=== PATIENT | male | born 1975 | race American Indian/Alaskan Native ===

== ENCOUNTER 2021-03-10 09:13 | Emergency (ER) | payer SELFPAY ==
[2021-03-10 09:19] VITALS: BP 107/53
[2021-03-10] MEDS ORDERED: CYCLOBENZAPRINE 10 MG TAB PO ONE (10:38)
[2021-03-10] MEDS ORDERED: KETOROLAC 60 MG/2 ML INJ IM ONE (10:38)
[2021-03-10 11:22] LABS: Bilirubin,Urine NEG (Negative); Blood,Urine NEG (Negative); Color,Urine Yellow (Yellow)
--- NOTE | 2021-03-10 12:01 | Emergency Department Report ---
ED Back Pain/Injury HPI - General Chief Complaint: Pain General Stated Complaint: BODY PAINS Time Seen by Provider: 03/10/21 10:31 Source: patient Limitations: No Limitations - History of Present Illness Initial Comments: Patient is a 45-year-old male presents emergency room complaints of right lower back pain that began yesterday. He states yesterday he was moving a heavy old couch. He denies any specific fall or injury. He states he has a history of herniated disc. He states he believes he aggravated his back during moving the furniture yesterday. He denies any fever, nausea, vomiting, diarrhea, urinary symptoms, numbness, weakness, bowel or bladder incontinence, abdominal pain. No other past medical history. No allergies to medications. - Related Data Previous Rx's Medication Instructions Recorded Last Taken Type Menthol/Camphor [[place] 1 applicatio TP BID #18 oint...g. 03/10/21 Unknown Rx Ointment] Naproxen [EC-Naprosyn] 500 mg PO BID PRN #20 tablet. 03/10/21 Unknown Rx methOCARBAMOL [Robaxin TAB] 500 mg PO BID PRN #20 tab 03/10/21 Unknown Rx Allergies Allergy/AdvReac Type Severity Reaction Status Date / Time No Known Allergies Allergy Unverified 03/10/21 09:19 ED Review of Systems ROS: Stated complaint: BODY PAINS Other details as noted in HPI Comment: All other systems reviewed and negative ED Past Medical Hx - Past Medical History Previous Medical History?: No - Surgical History Past Surgical History?: No - Social History Smoking Status: Current Every Day Smoker Substance Use Type: None - Medications Home Medications: Home Medications Medication Instructions Recorded Confirmed Last Taken Type Menthol/Camphor [[place] 1 applicatio TP BID #18 oint...g. 03/10/21 Unknown Rx Ointment] Naproxen [EC-Naprosyn] 500 mg PO BID PRN #20 tablet. 03/10/21 Unknown Rx methOCARBAMOL [Robaxin TAB] 500 mg PO BID PRN #20 tab 03/10/21 Unknown Rx ED Physical Exam - General Limitations: No Limitations General appearance: alert, in no apparent distress - Head Head exam: Present: atraumatic, normocephalic - Eye Eye exam: Present: normal appearance - ENT ENT exam: Present: mucous membranes moist - Neck Neck exam: Present: normal inspection, full ROM. Absent: tenderness, meningismus - Respiratory Respiratory exam: Present: normal lung sounds bilaterally. Absent: respiratory distress, wheezes, rales, rhonchi, stridor, chest wall tenderness, accessory muscle use, decreased breath sounds, prolonged expiratory - Cardiovascular Cardiovascular Exam: Present: regular rate, normal rhythm, normal heart sounds. Absent: systolic murmur, diastolic murmur, rubs, gallop - Back Exam Back exam: Present: normal inspection, full ROM, paraspinal tenderness (right sided lumbar paraspinal muscular ttp, no midline C-spine, T-spine or L-spine ttp, no step offs, no deformities ). Absent: vertebral tenderness - Neurological Exam Neurological exam: Present: alert, oriented X3, CN II-XII intact, normal gait. Absent: motor sensory deficit - Psychiatric Psychiatric exam: Present: normal affect, normal mood - Skin Skin exam: Present: warm, dry, intact ED Course Vital Signs 03/10/21 03/10/21 09:17 10:18 Temperature 98.7 F Pulse Rate 59 L Respiratory 18 16 Rate Blood Pressure 107/53 O2 Sat by Pulse 99 Oximetry ED Medical Decision Making - Medical Decision Making Patient is a 45-year-old male presents emergency room complaints of right lower back pain that began yesterday. He states yesterday he was moving a heavy old couch. He denies any specific fall or injury. He states he has a history of herniated disc. He states he believes he aggravated his back during moving the furniture yesterday. He denies any fever, nausea, vomiting, diarrhea, urinary symptoms, numbness, weakness, bowel or bladder incontinence, abdominal pain. No other past medical history. No allergies to medications. vitals are normal. on exam: right sided lumbar paraspinal muscular ttp, no midline C-spine, T-spine or L-spine ttp, no step offs, no deformities, no focal neuro deficits, ambulatory without difficulty. Patient has no red flag warning signs of back pain, no trauma, no unexplained weight loss, no neuro deficits, age is not greater than 50, no fever, no IV drug use, no steroid use, no history of cancer. Examination appears most consistent with exacerbation of his chronic back pain versus lumbar strain. Patient given medications while in the emergency department as he did not drive with improvement of symptoms. Patient given prescriptions. Advised patient Please take medication as prescribed as needed. Do not drive or operate machinery while using muscle relaxer robaxin. May use ice pack, heating pad, rest, epsom salt bath. Do not use [place] balm while using heat or ice. Follow- up with orthopedic/spine doctor. Follow-up with your primary care doctor. Return to emergency room for new or worsening symptoms. Critical care attestation.: If time is entered above; I have spent that time in minutes in the direct care of this critically ill patient, excluding procedure time. ED Disposition Clinical Impression: Low back pain Qualifiers: Chronicity: acute Back pain laterality: right Sciatica presence: without sciatica Qualified Code(s): M54.5 - Low back pain Disposition: - TO HOME OR SELFCARE Is pt being admited?: No Does the pt Need Aspirin: No Condition: Stable Instructions: Acute Back Pain, Adult, Muscle Strain, [id number] Additional Instructions: Please take medication as prescribed as needed. Do not drive or operate machinery while using muscle relaxer robaxin. May use ice pack, heating pad, rest, epsom salt bath. Do not use [place] balm while using heat or ice. Follow- up with orthopedic/spine doctor. Follow-up with your primary care doctor. Return to emergency room for new or worsening symptoms. Prescriptions: Naproxen [EC-Naprosyn] 500 mg PO BID PRN #20 tablet. PRN Reason: pain methOCARBAMOL [Robaxin TAB] 500 mg PO BID PRN #20 tab PRN Reason: muscle spasm/pain Menthol/Camphor [[place] Ointment] 1 applicatio TP BID #18 oint...g. Referrals: [facility] [Provider Group] - 3-5 Days MARKO ROYAL MD [Staff Physician] - 3-5 Days [facility] [Provider Group] - 3-5 Days SAUL SCHWARZ MD [Staff Physician] - 3-5 Days RUTH DUFF II, MD [Staff Physician] - 3-5 Days (spine doctor) Forms: Work/School Release Form(ED) Time of Disposition: 11:58 Print Language: ZAMBIAN
== END 2021-03-10 12:40 | disposition home or self-care (01) ==
LOC: ED 09:13
DX: M54.5 Low back pain (principal); F17.200 Nicotine dependence, unspecified, uncomplicated
CPT/HCPCS: 81001; 96372; 99283; J1885